=== PATIENT | female | born 1955 | race Hispanic/Latino ===

== ENCOUNTER 2018-02-22 08:01 | Day surgery (SDC) | payer BC ==
[2018-02-14 10:41] VITALS: BMI 23.1
[2018-02-22] MEDS ORDERED: Propofol 10 mg/ml Inj (20 ML) ONE (09:32)
[2018-02-22] MEDS ORDERED: Sodium Chloride 0.9% 1,000 ML IV SCH (10:00)
[2018-02-22 10:22] VITALS: RESP 16; O2SAT 100
[2018-02-22 11:52] VITALS: BP 115/68; TEMP 98
[2018-02-22 11:53] VITALS: PULSE 63
== END 2018-02-22 11:32 | disposition home or self-care (01) ==
LOC: ENDO 08:01
PROVIDERS: ATTEND Internal Medicine Gastroenterology
DX: Z12.11 Encounter for screening for malignant neoplasm of colon (principal); D12.2 Benign neoplasm of ascending colon; K57.30 Diverticulosis of large intestine without perforation or abscess without bleeding; K64.1 Second degree hemorrhoids; Z86.010 Personal history of colon polyps; E03.9 Hypothyroidism, unspecified; I10 Essential (primary) hypertension; E73.9 Lactose intolerance, unspecified
CPT/HCPCS: 45385; 88305; J2001; J2704; J3010; J7030

== ENCOUNTER 2018-04-30 08:45 | Outpatient (CLI) | payer BC | END 2018-04-30 08:46 | disposition home or self-care (01) | LOC: RAD 08:45 ==